=== PATIENT | male | born 1955 | race Caucasian/White ===

== ENCOUNTER 2018-10-09 21:46 | Emergency (ER) | payer BC ==
[2018-10-09 22:13] LABS: BASO % 0.1 % (0-6); GRAN % 81.9 % (47-80); HEMATOCRIT 42.4 % (42.0-52.0); HEMOGLOBIN 14.4 gm/dl (14.0-18.0); LYMPH % 11.6 % (16-45); MEAN CELL VOLUME 87.8 fl (81-97); MEAN CORPUSCULAR HEMOGLOBIN 29.8 pg (27-33); MEAN PLATELET VOLUME 9.4 fl (7.4-10.4); MONO % 6.4 % (0-9); PLATELET COUNT 308 K/uL (130-400); RED BLOOD COUNT 4.83 M/uL (4.40-5.70); WHITE BLOOD COUNT W/O DIFF 17.3 K/uL (4.2-12.2)
[2018-10-09] MEDS ORDERED: HYDROMORPHONE HCL 2 MG/ML VIAL IVP ONE (22:19)
[2018-10-09 22:24] LABS: BLOOD UREA NITROGEN 22 mg/dL (8-23)
[2018-10-09] MEDS ORDERED: ONDANSETRON HCL IV 4 MG/2 ML VIAL IVP ONE (22:24)
[2018-10-09 22:25] LABS: EST GLOMERULAR FILTRATION RATE > 60 mL/min; LIPASE 108 U/L (13-60); TOTAL PROTEIN 8.3 g/dL (6.6-8.7)
[2018-10-09 22:27] LABS: GLUCOSE,RANDOM 129 mg/dL (74-109)
[2018-10-09 22:30] LABS: ALB/GLOB RATIO 1.4 (1.1-1.8); ALBUMIN 4.8 g/dL (4.0-5.0); ALKALINE PHOSPHATASE 69 U/L (55-149); ALT/SGPT 16 U/L (<41); AST/SGOT 20 U/L (10.0-50.0)
--- NOTE | 2018-10-10 00:51 | Emergency Department Record ---
History of Present Illness - General Chief Complaint: Abdominal Pain Stated Complaint: NAUSEA AND ABD PAIN Time Seen by Provider: 10/09/18 22:08 Source: Patient Mode of Arrival: Ambulatory Limitations: No limitations - History of Present Illness Initial Comments: pt started getting luq ap at 1300 which has grown progressively worse. he has nausea MD Complaint: Abdominal pain Onset/Timin -: Days(s) Severity: Severe Severity scale (1-10): 10 Quality: Aching Consistency: Intermittent Improves With: Nothing Worsens With: Nothing Associated Symptoms: Nausea - Related Data Home Medications Medication Instructions Recorded Confirmed Last Taken Prednisone [Prednisone 20Mg] 20 mg PO BID 10/09/18 10/09/18 Unknown Previous Rx's Medication Instructions Recorded Hydrocodone/Acetaminophen [[place] 1 each PO Q6HR #10 tablet 10/10/18 5-325 Tablet] Allergies Allergy/AdvReac Type Severity Reaction Status Date / Time No Known Drug Allergies Allergy Verified 10/09/18 21:55 Travel Screening - Travel/Exposure Within Last 30 Days Have you traveled within the last 30 days?: No Review of Systems Reviewed: No additional complaints except as noted below Constitutional: Reports: As per HPI. Denies: Chills, Fever, Malaise, Night sweats, Weakness, Weight change Eyes: Reports: As per HPI. Denies: Eye discharge, Eye pain, Photophobia, Vision change ENT: Reports: As per HPI. Denies: Congestion, Dental pain, Ear pain, Epistaxis , Hearing loss, Throat pain Respiratory: Reports: As per HPI. Denies: Cough, Dyspnea, Hemoptysis, Stridor, Wheezes Cardiovascular: Reports: As per HPI. Denies: Arrhythmia, Chest pain, Dyspnea on exertion, Edema, Murmurs, Orthopnea, Palpitations, Paroxysmal nocturnal dyspnea, Rheumatic Fever, Syncope Endocrine: Reports: As per HPI. Denies: Fatigue, Heat or cold intolerance, Polydipsia, Polyuria Gastrointestinal: Reports: As per HPI. Denies: Abdominal pain, Constipation, Diarrhea, Hematemesis, Hematochezia, Melena, Nausea, Vomiting Genitourinary: Reports: As per HPI. Denies: Dysuria, Frequency, Hematuria, Incontinence, Retention, Testicular pain, Testicular mass, Urgency Musculoskeletal: Reports: As per HPI. Denies: Arthralgia, Back pain, Gout, Joint swelling, Myalgia, Neck pain Skin: Reports: As per HPI. Denies: Bruising, Change in color, Change in hair/ nails, Lesions, Pruritus, Rash Neurological: Reports: As per HPI. Denies: Abnormal gait, Confusion, Headache, Numbness, Paresthesias, Seizure, Tingling, Tremors, Vertigo, Weakness Psychiatric: Reports: As per HPI. Denies: Anxiety, Auditory hallucinations, Depression, Homicidal thoughts, Suicidal thoughts, Visual hallucinations Hematological/Lymphatic: Reports: As per HPI. Denies: Anemia, Blood Clots, Easy bleeding, Easy bruising, Swollen glands Past Medical History - SOCIAL HISTORY Smoking Status: Never smoker Alcohol Use: None Drug Use: None - RESPIRATORY Hx Respiratory Disorders: No - CARDIOVASCULAR Hx Cardio Disorders: No - NEURO Hx Neuro Disorders: No - GI Hx GI Disorders: No - Hx Genitourinary Disorders: No - ENDOCRINE Hx Endocrine Disorders: No - MUSCULOSKELETAL Hx Musculoskeletal Disorders: No - PSYCH Hx Psych Problems: No - HEMATOLOGY/ONCOLOGY Hx Hematology/Oncology Disorders: No Family Medical History Any Significant Family History?: Yes Hx Cancer: Mother, Grandparents *Cancer Comment: Mom- Pancreatic, Grandpa- Colon Hx Stroke: Mother Physical Exam - General General Appearance: Alert, Oriented x3, Cooperative, Moderate distress - Head Head exam: Normal inspection - Eye Eye exam: Normal appearance, PERRL, EOMI Pupils: Normal accommodation - ENT ENT exam: Normal exam, Mucous membranes moist, Normal external ear exam, Normal orophraynx Ear exam: Normal external inspection. negative: External canal tenderness Nasal Exam: Normal inspection. negative: Discharge, Sinus tenderness Mouth exam: Normal external inspection, Tongue normal Teeth exam: Normal inspection. negative: Dental caries Throat exam: Normal inspection. negative: Tonsillar erythema, Tonsillar exudate - Neck Neck exam: Normal inspection, Full ROM. negative: Tenderness - Respiratory Respiratory exam: Normal lung sounds bilaterally. negative: Respiratory distress - Cardiovascular Cardiovascular Exam: Regular rate, Normal rhythm, Normal heart sounds - GI/Abdominal GI/Abdominal exam: Soft, Normal bowel sounds. negative: Tenderness - Rectal Rectal exam: Deferred - exam: Deferred - Extremities Extremities exam: Normal inspection, Full ROM, Normal capillary refill. negative: Tenderness - Back Back exam: Reports: Normal inspection, Full ROM. Denies: Muscle spasm, Rash noted, Tenderness - Neurological Neurological exam: Alert, CN II-XII intact, Normal gait, Oriented X3 - Psychiatric Psychiatric exam: Normal affect, Normal mood - Skin Skin exam: Dry, Intact, Normal color, Warm Course Vital Signs 10/09/18 10/09/18 21:51 23:47 Temperature 97.9 F Pulse Rate 77 Pulse Rate [ 70 Pulse Ox Probe] Respiratory 28 H 16 Rate Blood Pressure 154/87 Blood Pressure 155/89 [Left Arm] Pulse Ox 100 99 - Reevaluation(s) Reevaluation #1: 10/10/18 01:25 pt is now pain free. pt has a urologist and will f/u tomorrow. ct shows 5mm stone and mass in liver Medical Decision Making - Lab Data Result diagrams: 10/09/18 22:06 10/09/18 22:06 Lab Results 10/09/18 10/09/18 Range/Units 22:06 22:06 WBC 17.3 H (4.2-12.2) K/uL RBC 4.83 (4.40-5.70) M/uL Hgb 14.4 (14.0-18.0) gm/dl Hct 42.4 (42.0-52.0) % MCV 87.8 (81-97) fl MCH 29.8 (27-33) pg MCHC 34.0 (32-36) g/dl RDW 14.0 (11.5-14.5) % Plt Count 308 (130-400) K/uL MPV 9.4 (7.4-10.4) fl Gran % 81.9 H (47-80) % Lymphocytes % 11.6 L (16-45) % Monocytes % 6.4 (0-9) % Eosinophils % 0.0 (0-6) % Basophils % 0.1 (0-6) % Sodium 135 L (136-145) mmol/L Potassium 4.3 (3.4-4.5) mmol/L Chloride 93 L (98-107) mmol/L Carbon Dioxide 22.0 (22-29) mmol/L Anion Gap 20.0 H (7-16) BUN 22 (8-23) mg/dL Creatinine 1.0 (0.7-1.2) mg/dL Estimated GFR > 60 mL/min Random Glucose 129 H (74-109) mg/dL Calcium 9.9 (8.8-10.2) mg/dL Total Bilirubin 0.60 (0.2-1.0) mg/dL AST 20 (10.0-50.0) U/L ALT 16 (<41) U/L Alkaline Phosphatase 69 (55-149) U/L Total Protein 8.3 (6.6-8.7) g/dL Albumin 4.8 (4.0-5.0) g/dL Globulin 3.5 (1.4-4.8) gm/dL Albumin/Globulin Ratio 1.4 (1.1-1.8) Lipase 108 H (13-60) U/L Disposition Disposition: Discharge Clinical Impression: Renal lithiasis Hydronephrosis Qualifiers: Hydronephrosis type: with ureteral calculous obstruction Qualified Code(s): N13.2 - Hydronephrosis with renal and ureteral calculous obstruction Pancreatitis Qualifiers: Chronicity: acute Pancreatitis type: unspecified pancreatitis type Acute pancreatitis complication: unspecified Qualified Code(s): K85.90 - Acute pancreatitis without necrosis or infection, unspecified Disposition: Home, Self-Care Condition: (1) Good Instructions: Kidney Stones (ED), How to Strain Your Urine (ED), Pancreatitis ( ED) Additional Instructions: follow up with urologist tomorrow regarding kidney stone. follow up with family doctor regarding pancreatits and liver. have mri of liver. push fluids Prescriptions: Hydrocodone/Acetaminophen [[place] 5-325 Tablet] 1 each PO Q6HR #10 tablet Quality - Quality Measures Quality Measures: N/A - Blood Pressure Screening Does Patient Have Any of the Following: No Blood Pressure Classification: Pre-Hypertensive BP Reading Systolic Measurement: 154 Diastolic Measurement: 87 Screening for High Blood Pressure: < Pre-Hypertensive BP, F/U Documented > [ [id number]] Pre-Hypertensive Follow-up Interventions: Follow-up with rescreen every year.
[2018-10-10 00:53] LABS: URINE BILIRUBIN NEGATIVE (NEGATIVE); URINE BLOOD NEGATIVE (NEGATIVE); URINE GLUCOSE (UA) NEGATIVE (NEGATIVE); URINE KETONE 15 mg/dL (NEGATIVE); URINE LEUKOCYTE ESTERASE SMALL (NEGATIVE); URINE NITRITE NEGATIVE (NEGATIVE); URINE PROTEIN NEGATIVE (NEGATIVE); URINE UROBILINOGEN 0.2 E.U./dL (0.20 - 1.00)
[2018-10-10 00:54] LABS: URINE APPEARANCE SL CLOUDY; URINE COLOR YELLOW
[2018-10-10 01:07] LABS: URINE AMORPHOUS SEDIMENT 1+; URINE BACTERIA NONE SEEN; URINE EPITHELIAL CELLS 0 - 2 (FEW); URINE RBC 0 - 2 (NONE SEEN); URINE WBC 0 - 2 (0-2/hpf)
[2018-10-10] MEDS ORDERED: HYDROCODONE/APAP 5/325MG TABLET PO ONE (01:21)
--- NOTE | 2018-10-12 13:15 | CT SCAN REPORT ---
EXAM: CT SCAN ABDOMEN/PELVIS WO CONTRAST HISTORY: LEFT ABDOMINAL PAIN. TECHNIQUE: Thin-collimation helical CT examination of the abdomen and pelvis is performed without oral or intravenous contrast administration. Lack of oral and IV contrast utilization limits evaluation of the bowel and solid viscera respectively. COMPARISON: None. FINDINGS: There is mild dependent atelectasis in each lung base. Minor linear scarring versus atelectasis also identified in the anterior lung bases. The visualized lung bases are otherwise clear. There is a 1.8 x 2.2 cm hypodense mass-like area within the high right liver lobe/liver dome. This has a density of 41 Hounsfield units. This cannot be characterized as a simple cyst and further evaluation with pre- and postcontrast administration MRI examination of the abdomen is recommended. There is a 1.5 x 1.5 cm fluid density mass within the central liver near the junction of the right and left lobes consistent with a simple cyst. A too small to characterize hypodense lesion is noted in the high medial segment of the left liver lobe as seen on image #30. No other focal hepatic lesion is seen. The spleen is not enlarged. No focal pancreatic lesion is seen. The adrenal glands are not enlarged. The kidneys are normal in position, size, and are smoothly marginated. There is a 2 mm nonobstructing calculus in the mid to lower right kidney. No other nephrolithiasis is seen nor renal mass. There is mild left hydroureteral nephrosis down to the level of the proximal/mid ureter where there is a presumed obstructing 5 mm renal calculus. There is moderate perinephric fat stranding/edema. This extends superiorly. There may also be edema/fluid in the left anterior pararenal space. The gallbladder is unremarkable. No biliary ductal dilatation is seen. No definite mediastinal or hilar mass/lymphadenopathy is identified though evaluation is limited. There is a small uncomplicated fat-filled umbilical hernia measuring 1.9 cm in diameter. No definite pelvic mass, lymphadenopathy, or free pelvic fluid is seen. There is marked enlargement of the prostate gland measuring 5 cm AP by 6.3 cm transverse. The wall of the urinary bladder appears borderline to mildly thickened possibly due to incomplete distention though this can also relate to muscular hypertrophy from bladder outlet obstruction. There is a large amount of stool within the distal colon and rectum. No gross bowel dilatation or bowel wall thickening. The appendix is not visualized with confidence. No evidence of appendicitis. No suspicious lytic or blastic bone lesion is seen. There is lucency throughout much of the central aspect of the L3 vertebral body with thickened trabecula consistent with hemangioma. Multilevel degenerative changes are identified most pronounced at the lumbosacral junction where there is bilateral spondylolysis of L5 and grade 1/2 anterolisthesis of L5 on S1. IMPRESSION: 1. A 5 MM PROXIMAL LEFT URETERAL CALCULUS SUGGESTED WITH MILD HYDROURETERAL NEPHROSIS. THERE IS ASSOCIATED MODERATE PERINEPHRIC FAT STRANDING LIKELY RELATING TO CALICEAL RUPTURE THOUGH SUPERIMPOSED INFECTION WOULD BE DIFFICULT TO EXCLUDE. IN ADDITION TO THE PERINEPHRIC FAT STRANDING, THERE IS ALSO LIKELY A SMALL AMOUNT OF FLUID IN THE ADJACENT ANTERIOR PARARENAL SPACE. 2. A 2.2 CM HYPODENSE LESION IN THE HIGH RIGHT LIVER LOBE. THIS IS NOT A SIMPLE CYST. FURTHER EVALUATION WITH PRE- AND POSTCONTRAST ADMINISTRATION MR OR CT EXAMINATION IS RECOMMENDED. A 1.5 CM CYST WITHIN THE CENTRAL LIVER. ADDITIONAL TOO SMALL TO CHARACTERIZE HYPODENSE LESION IN THE LEFT LIVER LOBE. 3. ENLARGED PROSTATE. APPARENT BORDERLINE TO MILD WALL THICKENING OF THE URINARY BLADDER, DISCUSSED ABOVE. JOB NUMBER: [id number] [facility]
== END 2018-10-10 01:50 | disposition home or self-care (01) ==
LOC: ER 21:46
DX: N13.2 Hydronephrosis with renal and ureteral calculous obstruction (principal); K85.90 Acute pancreatitis without necrosis or infection, unspecified; R11.0 Nausea
CPT/HCPCS: 99284 ×2; 96374; 96375; 83690; 85025; 80053; 81001; 74176; J2405; J1170